=== PATIENT | female | born 1945 | race Caucasian/White ===

== ENCOUNTER → 2016-12-01 | Outpatient (CLI) | payer MEDICARE, BC ==
--- NOTE | 2016-12-01 14:49 | FL ---
EXAMINATION TYPE: FL barium swallow DATE OF EXAM: 12/01/2016 COMPARISON: Postsurgical 02/02/2016 HISTORY: Dysphasia vomiting TECHNIQUE: A single contrast UGI study is performed. FINDINGS: 1.3 minutes of fluoroscopy time was provided for procedure. 32 images were obtained. The esophagus dilates to normal caliber has normal contour to the gastroesophageal junction. Gastroes ophageal junction opens to normal caliber. Tertiary contractions are evident. Secondary contractions are evident during the exam. Contrast enters the stomach without hesitancy. Note is made of a diverticulum medial aspect gastroeso phageal junction. This may be related to partial and wrapping from reported prior Linus fundoplicati on. Small hiatal hernia is present. This examination is compared 2016. The suspected diverticulum remains present. The hiatal hernia appe ars to be an interval finding. IMPRESSIONS: 1. Unwrapping of the Linus fundoplication versus fundal diverticulum similar to 2016 2. Small hiatal hernia appears to be present, new. 3. Mild Presbyesophagus with distal esophageal reflux.
== END ==
LOC: RADFLWHC 10:37
PROVIDERS: ATTEND Surgery
DX: K22.8 Other specified diseases of esophagus (principal); K21.9 Gastro-esophageal reflux disease without esophagitis
CPT/HCPCS: 74220

== ENCOUNTER 2016-12-07 07:54 | Day surgery (SDC) | payer MEDICARE, BC ==
[2016-12-01 12:33] VITALS: BMI 26.6
[~2016-12-07 07:54] MED LIST: LACTATED RINGERS 1,000 ML IV SCH
[2016-12-07 08:38] VITALS: TEMP 96.9
[2016-12-07] MEDS ORDERED: MIDAZOLAM 2 MG/2 ML VIAL ONE (09:30)
[2016-12-07] MEDS ORDERED: fentaNYL (PF) 50 MCG/ML 2 ML AMP ONE (09:30)
[2016-12-07] MEDS ORDERED: PROPOFOL 10 MG/ML 20 ML VIAL IV ONE (09:30)
--- NOTE | 2016-12-07 09:32 | P.GSHP ---
History of Present Illness H&P Date: 12/07/16 Chief Complaint: GERD This is a 71-year-old female referred from Dr. Jason Alvarez. Patient has safer EGD. She's had some issues with GERD and dysphagia. The patient's had a previous hiatal hernia repair. She's had new symptoms develop over the last month. Past Medical History Past Medical History: GERD/Reflux, Hypertension, Osteoarthritis (OA), Pulmonary Embolus (PE) Additional Past Medical History / Comment(s): hiatal hernia, varicose veins, History of Any Multi-Drug Resistant Organisms: None Reported Past Surgical History: Cholecystectomy, Hysterectomy, Joint Replacement, Tonsillectomy, Tubal Ligation Additional Past Surgical History / Comment(s): johann total knee replacement, cochlear implant rt ear(NO MRI) ,varicose vein rt leg,cystocele,rectocele Past Anesthesia/Blood Transfusion Reactions: Motion Sickness, Postoperative Nausea & Vomiting (PONV) Past Psychological History: No Psychological Hx Reported Smoking Status: Never smoker Past Alcohol Use History: Rare Past Drug Use History: None Reported - Past Family History Mother Family Medical History: Cancer Additional Family Medical History / Comment(s): lung Father Family Medical History: Renal Disease Sister(s) Family Medical History: Deep Vein Thrombosis (DVT) Medications and Allergies Home Medications Medication Instructions Recorded Confirmed Type Calcium Carbonate/Vitamin D3 1 each PO BID 01/14/16 12/01/16 History [Calcium 600-Vit D3 800 Tab] Enalapril Maleate [Vasotec] 10 mg PO 1500 01/14/16 12/01/16 History Metoprolol Tartrate [Lopressor] 25 mg PO QAM 01/14/16 12/01/16 History Oxybutynin Chloride [Ditropan] 5 mg PO HS 01/14/16 12/01/16 History Sertraline [Zoloft] 50 mg PO QAM 01/14/16 12/01/16 History Cetirizine HCl [Zyrtec] 10 mg PO DAILY 12/01/16 12/01/16 History Ibuprofen [Motrin] 800 mg PO DAILY 12/01/16 12/01/16 History Allergies Allergy/AdvReac Type Severity Reaction Status Date / Time No Known Allergies Allergy Verified 12/01/16 12:26 Surgical - Exam Vital Signs Temp Pulse Resp BP Pulse Ox 96.9 F L 53 L 18 140/75 95 12/07/16 08:35 12/07/16 08:35 12/07/16 08:35 12/07/16 08:35 12/07/16 08:35 - General well developed, no distress - Eyes PERRL - ENT normal pinna - Neck no masses - Respiratory normal expansion - Cardiovascular Rhythm: regular - Abdomen Abdomen: soft, non tender Assessment and Plan Plan: GERD, dysphagia. We'll perform EGD.
--- NOTE | 2016-12-07 09:39 | P.OP ---
Date of Procedure: 12/07/16 Preoperative Diagnosis: GERD Dysphagia Postoperative Diagnosis: Possible slipped fundal location Hiatal hernia Procedure(s) Performed: EGD Anesthesia: MAC Surgeon: Jace Phillips Pathology: other (Antrum, esophagus) Condition: stable Disposition: PACU Description of Procedure: Patient's placed on the endoscopy table in the lateral position. She received IV sedation. The gastroscope oropharynx and passed into the esophagus and into the stomach. Scope was then placed through the pylorus. The first and second portion duodenum appeared normal. Scope was then brought back the antrum this was mildly inflamed a biopsies performed. Scope was unretroflexed and remainder stomach appeared normal. The patient's fundal plication appeared to have slipped and was below the GE junction. There was a dilated proximal gastric pouch. It was unclear if this was a hiatal hernia. The GE junction was at 39 7 is. The distal esophagus appeared mildly inflamed and a biopsies performed. The proximal esophagus appeared normal. Scope was withdrawn for patient.
[2016-12-07 09:45] VITALS: RESP 16
[2016-12-07 10:00] VITALS: BP 111/60; PULSE 55
== END 2016-12-07 10:23 | disposition home or self-care (01) ==
LOC: ORWHC2ENDO 07:54
PROVIDERS: ATTEND Surgery
DX: K29.50 Unspecified chronic gastritis without bleeding (principal); R13.10 Dysphagia, unspecified; K21.9 Gastro-esophageal reflux disease without esophagitis; I10 Essential (primary) hypertension; K44.9 Diaphragmatic hernia without obstruction or gangrene; M19.90 Unspecified osteoarthritis, unspecified site; Z86.711 Personal history of pulmonary embolism; Z79.1 Long term (current) use of non-steroidal anti-inflammatories (NSAID); Z79.899 Other long term (current) drug therapy
CPT/HCPCS: 88305; 88342; 43239; J2250; J3010; J2704

== ENCOUNTER → 2016-12-18 | Outpatient (CLI) | payer MEDICARE, BC ==
[2016-12-18 12:09] LABS: Basophils # (A) 0.1 k/uL (0-0.2); Basophils % (A) 1 %; CH 33.7; CHCM 32.7; Eosinophils # (A) 0.2 k/uL (0-0.7); Eosinophils % (A) 3 %; HCT 44.3 % (34.0-46.0); HDW 2.45; Luc # (Auto) 0.16; Luc % (Auto) 2; Lymphocytes # (A) 2.2 k/uL (1.0-4.8); Lymphocytes % (A) 31 %; MCH 32.8 pg (25.0-35.0); MCHC 31.6 g/dL (31.0-37.0); MCV 103.9 fL (80.0-100.0); Macrocytosis Slight; Mean Platelet Volume 7.2; Monocytes # (A) 0.4 k/uL (0-1.0); Monocytes % (A) 6 %; Neutrophils # (A) 3.9 k/uL (1.3-7.7); Neutrophils % (A) 56 %; RBC 4.26 m/uL (3.80-5.40); RDW 14.3 % (11.5-15.5); WBC 6.9 k/uL (3.8-10.6); WBC (Perox) 7.44
== END | disposition home or self-care (01) ==
LOC: LABPAT 10:53
PROVIDERS: ATTEND Surgery
DX: Z01.810 Encounter for preprocedural cardiovascular examination (principal); Z01.812 Encounter for preprocedural laboratory examination; K21.0 Gastro-esophageal reflux disease with esophagitis; F17.200 Nicotine dependence, unspecified, uncomplicated; D64.9 Anemia, unspecified
CPT/HCPCS: 36415; 85025; 86850; 86900; 86901; 93005

== ENCOUNTER 2016-12-22 09:00 | Inpatient (IN) | payer MEDICARE, BC ==
[2016-12-18 11:27] VITALS: BMI 26.6
[~2016-12-22 09:00] MED LIST changes: +DEXAMETHASONE SOD PHOSPHATE 10 MG/ML 1 ML VIAL IV ONE; +HEPARIN SODIUM,PORCINE 5,000 UNIT/ML 1 ML VIAL SQ ONE; +HYDROmorphone 0.5 MG/0.5 ML SYRINGE IVP PRN; +MIDAZOLAM 2 MG/2 ML VIAL IV PRN; +ONDANSETRON 4 MG/2 ML VIAL IVP ONE; +ceFAZolin 2 GM in SODIUM CHLORIDE 0.9% 100 ML IVPB ONE
[2016-12-22] MEDS ORDERED: LACTATED RINGERS 1,000 ML IV ONE ×2 (09:45→12:19)
--- NOTE | 2016-12-22 10:07 | P.GSHP ---
History of Present Illness H&P Date: 12/22/16 Chief Complaint: GERD, dysphagia 's is a 71-year-old female referred from Dr. Alvarez. Patient developed GERD and dysphagia. Her recent esophagram shows evidence of a recurrent hiatal hernia and possible slipped plication. She presents today for laparoscopic hiatal hernia. 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 knee History of Any Multi-Drug Resistant Organisms: None Reported Past Surgical History: Cholecystectomy, Hysterectomy, Joint Replacement, Tonsillectomy, Tubal Ligation Additional Past Surgical History / Comment(s): johann total knee replacement, cochlear implant rt ear(NO MRI) ,varicose vein rt leg,cystocele,rectocele, ashwin fundopilication Past Anesthesia/Blood Transfusion Reactions: Postoperative Nausea & Vomiting ( PONV) Additional Past Anesthesia/Blood Transfusion Reaction / Comment(s): no hx blood transfusion Smoking Status: Never smoker - Past Family History Mother Family Medical History: Cancer Additional Family Medical History / Comment(s): lung,uterine Father Family Medical History: Renal Disease Sister(s) Family Medical History: Deep Vein Thrombosis (DVT) Medications and Allergies Home Medications Medication Instructions Recorded Confirmed Type Calcium Carbonate/Vitamin D3 1 each PO BID 01/14/16 12/18/16 History [Calcium 600-Vit D3 800 Tab] Enalapril Maleate [Vasotec] 10 mg PO 1500 01/14/16 12/18/16 History Metoprolol Tartrate [Lopressor] 25 mg PO QAM 01/14/16 12/18/16 History Oxybutynin Chloride [Ditropan] 5 mg PO HS 01/14/16 12/18/16 History Sertraline [Zoloft] 50 mg PO QAM 01/14/16 12/18/16 History Cetirizine HCl [Zyrtec] 10 mg PO DAILY 12/01/16 12/18/16 History Ibuprofen [Motrin] 800 mg PO DAILY 12/01/16 12/18/16 History Allergies Allergy/AdvReac Type Severity Reaction Status Date / Time No Known Allergies Allergy Verified 12/18/16 11:07 Surgical - Exam Vital Signs Temp Pulse Resp BP Pulse Ox 98.0 F 46 L 18 121/78 98 12/22/16 09:42 12/22/16 09:42 12/22/16 09:42 12/22/16 09:42 12/22/16 09:42 - General well developed, well nourished, no distress - Eyes PERRL - ENT normal pinna - Neck no masses - Respiratory normal expansion - Cardiovascular Rhythm: regular - Abdomen Abdomen: soft, non tender Assessment and Plan Plan: GERD, dysphagia with recurrent hiatal hernia. We'll perform laparoscopic repair of hiatal hernia.
[2016-12-22] MEDS ORDERED: LIDOCAINE 2%-EPI 1:100,000 20 ML VIAL SQ ONE (10:24)
[2016-12-22] MEDS ORDERED: BUPIVACAINE (PF) 0.25% 30 ML VIAL SQ ONE (10:24)
[2016-12-22] MEDS ORDERED: PROPOFOL 10 MG/ML 20 ML VIAL IV ONE (10:35)
[2016-12-22] MEDS ORDERED: SUCCINYLCHOLINE CHLORIDE 100 MG/5 ML SYR IV ONE (10:35)
[2016-12-22] MEDS ORDERED: ROCURONIUM BROMIDE 10 MG/ML 10 ML VIAL IV ONE (10:35)
[2016-12-22] MEDS ORDERED: fentaNYL (PF) 50 MCG/ML 2 ML AMP ONE (10:35)
[2016-12-22] MEDS ORDERED: LIDOCAINE 1% INJ 10MG/ML (20 ML MDV) ONE (10:35)
[2016-12-22] MEDS ORDERED: HYDROmorphone (PF) 1 MG/ML ONE (10:35)
[2016-12-22] MEDS ORDERED: GLYCOPYRROLATE 0.2 MG/ML 2 ML VIAL ONE (10:35)
[2016-12-22] MEDS ORDERED: NEOSTIGMINE 1 MG/ML 10 ML VIAL ONE (10:35)
[2016-12-22] MEDS ORDERED: ePHEDrine SULFATE/0.9% NACL/PF 50 MG/5 ML SYRINGE IV ONE (10:35)
[2016-12-22] MEDS ORDERED: HYDROmorphone 1 MG/ML 1 ML SYRINGE IVP PRN (13:03)
[2016-12-22] MEDS ORDERED: ONDANSETRON 4 MG/2 ML VIAL IVP PRN (13:03)
--- NOTE | 2016-12-22 13:26 | P.OP ---
Date of Procedure: 12/22/16 Preoperative Diagnosis: GERD, dysphagia Recurrent hiatal hernia Postoperative Diagnosis: Recurrent hiatal hernia Procedure(s) Performed: Laparoscopic repair of recurrent hiatal hernia with [place] bio a mesh with 180 Michelle fundoplication wrap Laparoscopic repair of stomach Anesthesia: RADU Surgeon: Jace Phillips Estimated Blood Loss (ml): 10 Pathology: other (Stomach) Condition: stable Disposition: PACU Description of Procedure: Patient's placed the operative table in the supine position. She received general anesthesia. Her abdomen was prepped and draped usual sterile fashion. After he is placed in dorsal lithotomy position. The skin incision sites were anesthetized 1% local Xylocaine. Using 11 blade the skin was incised left periumbilical area and then using a 5 mm optical trocar under direct visitation the parents ENTERED and the abdomen was insufflated. After adequate insufflation a fibrillar trocar is placed in the right upper quadrant, right lateral position, left lateral position in an 8 mm trochars placed in the left epigastric position. The liver was retracted. And a recurrent hiatal hernia could be visualized. The patient a previous fundal plication and this was adhered to the right mimi. During the dissection of the adhesions on the right mimi a small enterotomy is made and stomach. This was oversewn with 2-0 Ethibond suture. And then the repair was performed by lifting up the enterotomy resection and placing a powered echelon stapler below the repair. The stapler was fired and the portion of the stomach with the enterotomy was excised. The crural further dissected. In the stomach and esophagus reduced into the abdominal cavity. The patient had a previous fundal plication wrap. The sutures the wrap were taken down with sharp dissection and the wrap was converted 280 wrap. This point the 2 Ethibond was used to close the mimi. And then the repair was buttressed with [place] bio a mesh secured with 2-0 Ethibond suture. Care was taken to ensure that the hiatus was not too tight around the esophagus. A 58-Malaysian bougie dilator was placed in the esophagus for sizing. This point stomach was insufflated with methylene blue normal saline. There is no evidence of any extravasation. The area was irrigated. The trochars were withdrawn. Skin was closed interrupted 3-0 Monocryl suture. Dermabond was applied. Recovery in stable condition.
[2016-12-22 14:13] LABS: Basophils % (A) 0 %; CH 33.1; CHCM 31.7; Eosinophils % (A) 0 %; HCT 43.9 % (34.0-46.0); HDW 2.44; HGB 13.7 gm/dL (11.4-16.0); Luc # (Auto) 0.05; Luc % (Auto) 0; Lymphocytes # (A) 1.2 k/uL (1.0-4.8); Lymphocytes % (A) 10 %; MCH 32.8 pg (25.0-35.0); MCHC 31.2 g/dL (31.0-37.0); MCV 105.2 fL (80.0-100.0); Macrocytosis Moderate; Mean Platelet Volume 7.3; Monocytes # (A) 0.1 k/uL (0-1.0); Monocytes % (A) 1 %; Neutrophils # (A) 10.8 k/uL (1.3-7.7); Neutrophils % (A) 88 %; RBC 4.17 m/uL (3.80-5.40); RDW 14.3 % (11.5-15.5); WBC 12.3 k/uL (3.8-10.6); WBC (Perox) 11.81
[2016-12-22] MEDS: D5-0.45% NACL WITH KCL 20MEQ/L 1,000 ML IV SCH ×2 (15:05→23:00)
[2016-12-22] MEDS: METOCLOPRAMIDE 5 MG/ML 2 ML VIAL IVP SCH (18:22)
[2016-12-22] MEDS ORDERED: LORazepam 2 MG/ML INJ IV PRN (18:46)
[2016-12-22] MEDS: FAMOTIDINE 20 MG/2 ML VIAL IV SCH (21:02)
--- NOTE | 2016-12-22 23:29 | CONS ---
CONSULTATION REASON FOR CONSULTATION: Advice regarding hypertension and other multiple medical issues requested by Surgery. HISTORY OF PRESENT ILLNESS: This 71-year-old woman with a past medical history of hypertension, DJD, history of pulmonary embolism being followed by Dr. Donald in the outpatient setting underwent laparoscopic repair of recurrent hiatal hernia with a [place] Bio-A mesh with a Michelle fundoplication by Dr. Phillips. There is no history of any chest pain. No history of palpitations. No history of headache, loss of consciousness, seizures. No history of any diarrhea, fever, rigors or chills at this time. PAST MEDICAL HISTORY: Hypertension, DJD, history of GERD, history of pulmonary embolism, history of cholecystectomy. MEDICATIONS PRIOR TO ADMISSION: Include: 1. Zoloft 50 mg q.a.m. 2. Ditropan 5 mg q.h.s. 3. Lopressor 25 mg q.a.m. 4. Motrin 800 mg daily. 5. Zetia 10 mg daily. 6. Zyrtec 10 mg daily. 7. Calcium with vitamin D 1 p.o. b.i.d. ALLERGIES: None. FAMILY HISTORY: History of cancer: Lung, uterine cancer. SOCIAL HISTORY: History of occasional alcohol. No history of smoking. REVIEW OF SYSTEMS: ENT: No diminished hearing, diminished vision. CARDIOVASCULAR: No angina, palpitations. RESPIRATORY: No cough. GI: No nausea. : No dysuria. NERVOUS: No numbness, weakness. ALLERGY/IMMUNOLOGY: No asthma or hay fever. MUSCULOSKELETAL: As mentioned above. HEMATOLOGY/ONCOLOGY: No history of anemia. ENDOCRINE: No history of diabetes, hypothyroidism. CONSTITUTIONAL: As mentioned earlier. DERMATOLOGY: Negative. RHEUMATOLOGY: Negative. PSYCHIATRY: As mentioned earlier. PHYSICAL EXAM: Patient is alert, oriented x3. Pulse 70, blood pressure 128/70, respirations 16, temperature is normal. Pulse ox 97% on 2L. HEENT: Conjunctivae normal. Oral mucosa moist. NECK: No jugular venous distention. No carotid bruits. No lymph node enlargement. CARDIOVASCULAR SYSTEM: S1, S2 muffled. RESPIRATORY: Breath sounds diminished in the bases. A few scattered rhonchi. No crackles. ABDOMEN: Soft, nontender. No mass palpable. Status post surgery. LEGS: No edema. No swelling. NERVOUS SYSTEM: Higher functions as mentioned earlier. Moves all 4 limbs. No focal deficits. LYMPHATIC: No lymphadenopathy in neck or axillae. SKIN: No ulcer, rash or bleeding. LABS: WBC 12.3. ASSESSMENT: 1. Status post laparoscopic repair of recurrent hiatal hernia with a Michelle fundoplication. 2. Hypertension. 3. Gastroesophageal reflux disease. 4. History of degenerative joint disease. 5. History of pulmonary embolus. 6. History of cholecystectomy. RECOMMENDATIONS AND DISCUSSION: In this 71-year-old woman who presented with multiple complex medical issues, will monitor the patient closely. Continue the current management. Continue symptomatic treatment. The p.o. medication may be initiated when the patient is p.o. and cleared by Surgery. Otherwise, I would recommend DVT prophylaxis. Lovenox has been initiated. Otherwise, incentive spirometry. Will follow the patient closely with you and p.r.n. Ativan also may be used for any anxiety or agitation. Thank you, Dr. Phillips, for letting us participate in the care of this patient. See orders for further details. I would also recommend the patient follow up closely with Dr. Donald after discharge. MMODL / IJN: [id number] /
[2016-12-23] MEDS ORDERED: SODIUM CHLORIDE 0.9% 500 ML IV ONE ×2 (00:54→10:22)
[2016-12-23 01:01] LABS: Glucose,Whole Blood 136 mg/dL (75-99)
[2016-12-23] MEDS: METOCLOPRAMIDE 5 MG/ML 2 ML VIAL IVP SCH ×3 (01:34→14:20)
[2016-12-23 08:01] VITALS: PULSE 75; RESP 16
--- NOTE | 2016-12-23 08:24 | FL ---
EXAMINATION TYPE: FL esophagus cervic/pharynx DATE OF EXAM ORDERED: 12/23/2016 8:19 AM HISTORY: Postop hiatal hernia repair. COMPARISON: None. FINDINGS: The patient drank barium of these. There was prompt egress of contrast from the esophagus into the stomach. The ligament of Treitz is in the normal location. There is no evidence of extravasa tion. There is a scant amount of free air. IMPRESSION: STATUS POST TAIT FUNDOPLICATION.
[2016-12-23] MEDS: FAMOTIDINE 20 MG/2 ML VIAL IV SCH (08:44)
[2016-12-23] MEDS: D5-0.45% NACL WITH KCL 20MEQ/L 1,000 ML IV SCH (08:55)
[2016-12-23] MEDS ORDERED: ENOXAPARIN 40 MG/0.4 ML SYRINGE SQ SCH (09:00)
[2016-12-23] MEDS ORDERED: SERTRALINE 50 MG TAB PO SCH (09:00)
[2016-12-23] MEDS ORDERED: METOPROLOL TARTRATE 25 MG TAB PO SCH (09:00)
--- NOTE | 2016-12-23 10:54 | P.DS ---
Providers Date of admission: 12/22/16 12:36 Expected date of discharge: 12/23/16 Attending physician: Jace Phillips Consults: 12/22/16 13:26 Consult Physician Routine Consulting Provider: Ho Toth Consult Reason/Comments: Medical management Do you want consulting provider notified?: Yes Primary care physician: Stated None Hospital Course: This is a 71-year-old female who underwent laparoscopic repair of recurrent hiatal hernia on 12/22/2016. Patient did well postoperatively please see hospital chart for her for details. Procedures: Laparoscopic hiatal hernia repair Patient Condition at Discharge: Good Plan - Discharge Summary New Discharge Prescriptions: New Docusate [Colace] 100 mg PO BID #20 capsule HYDROcodone/APAP 7.5-325MG [[place] 7.5] 1 each PO Q4H PRN #30 tab PRN Reason: Pain No Action Sertraline [Zoloft] 50 mg PO QAM Oxybutynin Chloride [Ditropan] 5 mg PO HS Metoprolol Tartrate [Lopressor] 25 mg PO QAM Enalapril Maleate [Vasotec] 10 mg PO DAILY@1500 Calcium Carbonate/Vitamin D3 [Calcium 600-Vit D3 800 Tab] 1 tab PO BID Cetirizine HCl [Zyrtec] 10 mg PO DAILY Ibuprofen [Motrin] 800 mg PO DAILY Discharge Medication List Calcium Carbonate/Vitamin D3 [Calcium 600-Vit D3 800 Tab] 1 tab PO BID 01/14/16 [History] Enalapril Maleate [Vasotec] 10 mg PO DAILY@1500 01/14/16 [History] Metoprolol Tartrate [Lopressor] 25 mg PO QAM 01/14/16 [History] Oxybutynin Chloride [Ditropan] 5 mg PO HS 01/14/16 [History] Sertraline [Zoloft] 50 mg PO QAM 01/14/16 [History] Cetirizine HCl [Zyrtec] 10 mg PO DAILY 12/01/16 [History] Ibuprofen [Motrin] 800 mg PO DAILY 12/01/16 [History] Docusate [Colace] 100 mg PO BID #20 capsule 12/23/16 [Rx] HYDROcodone/APAP 7.5-325MG [[place] 7.5] 1 each PO Q4H PRN #30 tab 12/23/16 [Rx] Follow up Appointment(s)/Referral(s): Jace Phillips MD [STAFF PHYSICIAN] - 1 Week
[2016-12-23 12:09] LABS: Basophils % (A) 0 %; CH 33.4; CHCM 31.5; Eosinophils # (A) 0.1 k/uL (0-0.7); Eosinophils % (A) 1 %; HCT 37.7 % (34.0-46.0); HDW 2.46; HGB 11.5 gm/dL (11.4-16.0); Luc # (Auto) 0.13; Luc % (Auto) 1; Lymphocytes # (A) 1.5 k/uL (1.0-4.8); Lymphocytes % (A) 17 %; MCH 32.7 pg (25.0-35.0); MCHC 30.6 g/dL (31.0-37.0); MCV 106.8 fL (80.0-100.0); Macrocytosis Moderate; Mean Platelet Volume 7.4; Monocytes # (A) 0.4 k/uL (0-1.0); Monocytes % (A) 4 %; Neutrophils % (A) 77 %; RBC 3.53 m/uL (3.80-5.40); RDW 14.2 % (11.5-15.5); WBC 9.2 k/uL (3.8-10.6); WBC (Perox) 9.69
[2016-12-23 12:18] LABS: Anion Gap 6 mmol/L; Blood Urea Nitrogen 12 mg/dL (7-17); Carbon Dioxide 21 mmol/L (22-30); Chloride 110 mmol/L (98-107); Glucose 89 mg/dL (74-99); Non-African American GFR(MDRD) >60 (>60 ml/min/1.73 sqM); Potassium 4.3 mmol/L (3.5-5.1); Sodium 137 mmol/L (137-145)
[2016-12-23] MEDS ORDERED: LISINOPRIL 20 MG TAB PO SCH (15:00)
[2016-12-23] MEDS ORDERED: LISINOPRIL 10 MG TAB PO SCH (15:00)
[2016-12-23 15:07] VITALS: BP 119/68; TEMP 98.2
--- NOTE | 2016-12-23 16:03 | PN ---
PROGRESS NOTE DATE OF SERVICE: 12/23/2016 This 71-year-old woman was admitted after laparoscopic repair of hiatal hernia. Had a syncopal episode apparently. No chest pain. No palpitations. No fever. No shortness of breath. Blood pressure is stable. No orthostatic changes. PHYSICAL EXAM: Alert, oriented x3. Pulse 75, blood pressure 105/62, respirations 16, temperature 98.2, pulse ox 97% on room air. HEENT: Conjunctivae normal. NECK: No jugular venous distention. CARDIOVASCULAR: S1, S2 RESPIRATORY: Breath sounds diminished in the bases. No rhonchi. No crackles. ABDOMEN: Soft, status post surgery. LEGS: No edema. NERVOUS SYSTEM: No focal deficits. LABS: Hemoglobin 11.5, sodium 139, potassium 4.3. ASSESSMENT: 1. Status post laparoscopic repair of recurrent hiatal hernia with Michelle fundoplication. 2. Syncopal episode, possible vasovagal. 3. Hypertension. 4. Gastroesophageal reflux disease. 5. History of degenerative joint disease. 6. History of pulmonary embolism. 7. History of cholecystectomy. RECOMMENDATIONS AND DISCUSSION: I recommend to continue current medications. Symptomatic treatment. Otherwise recommend close follow with the primary physician in the outpatient setting. The rest of the recommendations per Surgery. Currently patient is stable. See orders for further details. Further recommendations to follow. MMODL / IJN: [id number] /
== END 2016-12-23 16:15 | disposition home or self-care (01) | DRG 328 ==
LOC: OR 09:00 → 6PED 12:36 → OR 13:11 → 6PED 22:41
PROVIDERS: ADMIT Surgery; ATTEND Surgery
PROC: 0DV44ZZ Restriction of Esophagogastric Junction, Percutaneous Endoscopic Approach (ICD-10-PCS; principal; 2016-12-22 10:15)
PROC: 0BUT4JZ Supplement Diaphragm with Synthetic Substitute, Percutaneous Endoscopic Approach (ICD-10-PCS; principal; 2016-12-22 10:15)
PROC: 0DQ64ZZ Repair Stomach, Percutaneous Endoscopic Approach (ICD-10-PCS; principal; 2016-12-22 10:15)
DX: K44.9 Diaphragmatic hernia without obstruction or gangrene (principal); I10 Essential (primary) hypertension; R13.10 Dysphagia, unspecified; K21.9 Gastro-esophageal reflux disease without esophagitis; Z79.899 Other long term (current) drug therapy; Z80.1 Family history of malignant neoplasm of trachea, bronchus and lung; Z86.711 Personal history of pulmonary embolism; Z96.653 Presence of artificial knee joint, bilateral; R55 Syncope and collapse; Z96.651 Presence of right artificial knee joint; Z80.49 Family history of malignant neoplasm of other genital organs; Z79.1 Long term (current) use of non-steroidal anti-inflammatories (NSAID); M19.90 Unspecified osteoarthritis, unspecified site
CPT/HCPCS: 74210; 80048; 85025; 86850; 86900; 86901; 88307

== ENCOUNTER → 2018-01-04 | Outpatient (CLI) | payer BC, MEDICARE ==
--- NOTE | 2018-01-04 09:25 | FL ---
ESOPHOGRAM. HISTORY: Dysphagia. Status post Linus fundoplication. 1 min FL time. EZ HD - 2 oz. EZ Paque- 3 oz. EZ Gas - 1 PKG. Esophagram was performed per the air contrast technique. The patient swallowed barium and effervesce nt crystals without difficulty or delay. Esophageal peristalsis and motility appear to be within normal limits. There is no evidence for filling defect, mass or diverticulum. Small recurrent hernia noted. Subsequently single contrast cervical esophagram was performed which fails demonstrate evidence for a spiration penetration or mass. IMPRESSION: Small recurrent hernia noted.
== END | disposition home or self-care (01) ==
LOC: RADFLWHC 08:36
PROVIDERS: ATTEND Surgery
DX: K46.9 Unspecified abdominal hernia without obstruction or gangrene (principal); K21.9 Gastro-esophageal reflux disease without esophagitis
CPT/HCPCS: 74220

== ENCOUNTER 2018-01-16 09:46 | Day surgery (SDC) | payer BC, MEDICARE ==
[2018-01-14 10:39] VITALS: BMI 26.9
[2018-01-16 10:24] VITALS: TEMP 98
[2018-01-16] MEDS ORDERED: LACTATED RINGERS 1,000 ML IV ONE (10:29)
[2018-01-16] MEDS ORDERED: LIDOCAINE 1% 20 ML VIAL (10MG/ML) FOR IV START INTRADERMA ONE (10:29)
[2018-01-16] MEDS ORDERED: LIDOCAINE 1% INJ 10MG/ML (20 ML MDV) ONE (10:53)
[2018-01-16] MEDS ORDERED: PROPOFOL 10 MG/ML 20 ML VIAL IV ONE (10:53)
--- NOTE | 2018-01-16 11:08 | P.OP ---
Date of Procedure: 01/16/18 Preoperative Diagnosis: GERD Postoperative Diagnosis: Recurrent hiatal hernia Esophagitis Procedure(s) Performed: EGD Anesthesia: MAC Surgeon: Jace Phillips Pathology: other (Antrum, esophagus) Condition: stable Description of Procedure: The patient's placed on the endoscopy table in the lateral position. She received IV sedation. The gastroscope placed oropharynx and passed in the esophagus and stomach. Scope was then placed through the pylorus. The first and second portion of the duodenum appeared normal. Scope scope was then brought back the antrum this appeared normal. There was a large amount of her teens food in the antrum. Scope was then retroflexed and there was a moderate size recurrent hiatal hernia. The GE junction was at 38 cm. The distal esophagus appeared mildly inflamed a biopsies performed. The proximal esophagus appeared normal. Scope was withdrawn for patient.
--- NOTE | 2018-01-16 11:10 | P.GSHP ---
History of Present Illness H&P Date: 01/16/18 Chief Complaint: GERD This a 72-year-old female who's had recurrent issues with GERD. She presents today for EGD. Past Medical History Past Medical History: GERD/Reflux, Hearing Disorder / Deafness, Hypertension, Osteoarthritis (OA), Pulmonary Embolus (PE) Additional Past Medical History / Comment(s): hiatal hernia, varicose veins History of Any Multi-Drug Resistant Organisms: None Reported Past Surgical History: Cholecystectomy, Hysterectomy, Joint Replacement, Tonsillectomy, Tubal Ligation Additional Past Surgical History / Comment(s): johann total knee replacement, cochlear implant rt ear(NO MRI) ,varicose vein rt leg,cystocele,rectocele, diana fund.x2 Past Anesthesia/Blood Transfusion Reactions: Family History of Problems w/ Anesthesia, Motion Sickness Additional Past Anesthesia/Blood Transfusion Reaction / Comment(s): no hx blood transfusion. dtr ponv. cochlear implant rt hear-very poor hearing, lt ear hearing aide,reads lips,need to touch pt when trying to wake up Smoking Status: Never smoker - Past Family History Mother Family Medical History: Cancer Additional Family Medical History / Comment(s): lung,uterine Father Family Medical History: Renal Disease Sister(s) Family Medical History: Deep Vein Thrombosis (DVT) Medications and Allergies Home Medications Medication Instructions Recorded Confirmed Type Calcium Carbonate/Vitamin D3 1 tab PO DAILY 01/14/16 01/16/18 History [Calcium 600-Vit D3 800 Tab] Enalapril Maleate [Vasotec] 10 mg PO DAILY@1500 01/14/16 01/16/18 History Metoprolol Tartrate [Lopressor] 25 mg PO QAM 01/14/16 01/16/18 History Oxybutynin Chloride [Ditropan] 5 mg PO HS 01/14/16 01/16/18 History Sertraline [Zoloft] 50 mg PO QAM 01/14/16 01/16/18 History Cetirizine HCl [Zyrtec] 10 mg PO DAILY 12/01/16 01/16/18 History Allergies Allergy/AdvReac Type Severity Reaction Status Date / Time No Known Allergies Allergy Verified 01/16/18 10:21 Surgical - Exam Vital Signs Temp Pulse Resp BP Pulse Ox 98.0 F 54 L 16 139/70 95 01/16/18 10:23 01/16/18 10:23 01/16/18 10:23 01/16/18 10:23 01/16/18 10:23 - General well developed, no distress - Eyes PERRL - ENT normal pinna - Neck no masses - Respiratory normal expansion - Cardiovascular Rhythm: regular Assessment and Plan Assessment: GERD. We'll perform EGD.
[2018-01-16 11:37] VITALS: BP 143/67; PULSE 50; RESP 16
== END 2018-01-16 11:51 | disposition home or self-care (01) ==
LOC: ORWHC2ENDO 09:46
PROVIDERS: ATTEND Surgery
DX: K21.0 Gastro-esophageal reflux disease with esophagitis (principal); M19.90 Unspecified osteoarthritis, unspecified site; I10 Essential (primary) hypertension; K44.9 Diaphragmatic hernia without obstruction or gangrene; Z86.711 Personal history of pulmonary embolism; H91.93 Unspecified hearing loss, bilateral; Z96.653 Presence of artificial knee joint, bilateral; Z90.710 Acquired absence of both cervix and uterus; Z98.51 Tubal ligation status; Z79.899 Other long term (current) drug therapy; Z96.21 Cochlear implant status
CPT/HCPCS: 88305; 43239; J2001; J2704